=== PATIENT | male | born 1970 | race Caucasian/White ===

== ENCOUNTER 2022-02-22 17:21 | Inpatient (IN) | payer OTHER ==
[2022-02-22 20:58] VITALS: BMI 22.5
[2022-02-22] MEDS ORDERED: MAG HYDROX/AL HYDROX/SIMETH 30 ML UNIT-DOSE CUP PO PRN (22:03)
[2022-02-22] MEDS ORDERED: MAGNESIUM HYDROX 2400MG/30ML ORAL SUSPENSION 30 ML CUP PO PRN (22:03)
[2022-02-22] MEDS ORDERED: NALOXONE HCL (KLOXXADO) 8 MG SPRAY NS PRN (22:03)
[2022-02-22] MEDS ORDERED: ACETAMINOPHEN 325 MG TABLET (FP) PO PRN ×2 (22:03)
[2022-02-22] MEDS ORDERED: BENZOCAINE/MENTHOL (CHLORASEPTIC ) LOZENGE MM PRN (22:03)
[2022-02-22] MEDS ORDERED: MELATONIN 5 MG TABLETS PO PRN (22:03)
[2022-02-22] MEDS ORDERED: guaiFENesin 200 MG/10 ML 10 ML UNIT-DOSE CUPS PO PRN (22:03)
[2022-02-22] MEDS ORDERED: IBUPROFEN 600 MG TABLET (FP) PO PRN (22:03)
[2022-02-22] MEDS ORDERED: NICOTINE POLACRILEX 2 MG GUM BUC PRN (22:03)
[2022-02-22] MEDS ORDERED: LOPERAMIDE HCL 2 MG CAPSULE PO PRN (22:03)
[2022-02-22] MEDS ORDERED: METHOCARBAMOL 500 MG TABLET PO PRN (22:03)
[2022-02-22] MEDS ORDERED: DICYCLOMINE HCL 10 MG CAPSULE PO PRN (22:03)
[2022-02-22] MEDS ORDERED: BISMUTH SUBSALICYLATE 524 MG/30 ML PO PRN (22:03)
[2022-02-22] MEDS ORDERED: hydrOXYzine PAMOATE 25 MG CAPSULE (FP) PO PRN (22:03)
[2022-02-22] MEDS ORDERED: P-EPHED 60MG/TRIPROLIDI 2.5MG TABLET PO PRN (22:03)
[2022-02-22] MEDS ORDERED: MAGNESIUM CITRATE 300 ML BOTTLE PO PRN (22:03)
[2022-02-22] MEDS ORDERED: IBUPROFEN 400 MG TABLET (FP) PO PRN (22:03)
[2022-02-22] MEDS ORDERED: ONDANSETRON *ODT* 4 MG TABLET SL PRN (22:03)
[2022-02-22] MEDS ORDERED: cloNIDine HCL 0.1 MG TABLET PO PRN (22:05)
[2022-02-22] MEDS ORDERED: methaDONE HCL 10 MG TABLET (FOR DETOX USE ONLY) PO ONE (22:05)
[2022-02-22] MEDS ORDERED: methaDONE HCL 10 MG TABLET (FOR DETOX USE ONLY) ONE (22:21)
[2022-02-23] MEDS: PRENATAL VITAMINS W/ FOLIC ACID TABLET (FP) PO SCH (10:35)
[2022-02-23 12:31] LABS: HEMATOCRIT 39.8 % (35.4-49); HEMOGLOBIN 13.2 GM/dL (11.7-16.9); MCH 29.3 pg (25.7-33.7); MCHC 33.1 g/dl (32.0-35.9); MEAN CELL VOLUME 88.3 fl (80-96); PLATELET COUNT 242 10^3/uL (134-434); RBC 4.51 M/mm3 (4.00-5.60); RDW 13.4 % (11.9-15.9); WHITE BLOOD COUNT 6.8 K/mm3 (4.0-10.0)
[2022-02-23 12:54] LABS: ALBUMIN 3.4 g/dl (3.4-5.0); BLOOD UREA NITROGEN 13.4 mg/dL (7-18); CALCIUM 8.6 mg/dL (8.5-10.1)
[2022-02-23 12:57] LABS: CREATININE 0.7 mg/dL (0.55-1.3)
[2022-02-23 12:59] LABS: BILIRUBIN,TOTAL 0.6 mg/dL (0.2-1); TOT PROT 5.9 g/dl (6.4-8.2)
[2022-02-23] MEDS ORDERED: THIAMINE HCL 100 MG TABLET (FP) PO SCH (22:00)
[2022-02-24 06:27] VITALS: RESP 18
[2022-02-24] MEDS: PRENATAL VITAMINS W/ FOLIC ACID TABLET (FP) PO SCH (09:12)
[2022-02-24 09:29] VITALS: BP 134/72; PULSE 68; TEMP 97.1
[2022-02-24] MEDS ORDERED: methaDONE HCL 10 MG TABLET (FOR DETOX USE ONLY) PO ONE (10:00)
[2022-02-26] MEDS ORDERED: methaDONE HCL 10 MG TABLET (FOR DETOX USE ONLY) PO ONE (10:00)
== END 2022-02-24 10:11 | disposition left against medical advice (07) | DRG 770 ==
LOC: YASAS 17:21 → Y3N 22:53
PROVIDERS: ADMIT Allergy & Immunology; ATTEND Surgery
PROC: HZ2ZZZZ Detoxification Services for Substance Abuse Treatment (ICD-10-PCS; principal; 2022-02-22)
DX: F11.23 Opioid dependence with withdrawal (principal); F12.20 Cannabis dependence, uncomplicated; F17.210 Nicotine dependence, cigarettes, uncomplicated
CPT/HCPCS: 36415; 80053; 85027; 86780; C9803-CS; U0003; U0005